=== PATIENT | female | born 1945 | race Caucasian/White ===

== ENCOUNTER → 2018-06-28 | Outpatient (CLI) | payer OTHER | END | disposition home or self-care (01) | LOC: CFH 09:52 | PROVIDERS: ATTEND Licensed Practical Nurse | DX: Z12.2 Encounter for screening for malignant neoplasm of respiratory organs (principal); R91.8 Other nonspecific abnormal finding of lung field; J84.10 Pulmonary fibrosis, unspecified; Z87.891 Personal history of nicotine dependence | CPT/HCPCS: G0297 ==

== ENCOUNTER 2019-01-07 07:42 | Outpatient (CLI) | payer MEDICARE | END 2019-01-07 23:59 | disposition home or self-care (01) | LOC: CFH 07:42 | PROVIDERS: ATTEND Licensed Practical Nurse | DX: Z12.2 Encounter for screening for malignant neoplasm of respiratory organs (principal); R91.8 Other nonspecific abnormal finding of lung field; F17.200 Nicotine dependence, unspecified, uncomplicated | CPT/HCPCS: G0297 ==